=== PATIENT | female | born 1965 | race Caucasian/White ===

== ENCOUNTER 2019-06-28 13:12 | Observation (INO) ==
[2019-06-28] MEDS ORDERED: Isovue-370 500 ML BOTTLE IVP ONE (13:35)
[2019-06-28] MEDS ORDERED: *HR* LORazepam 2 MG/ML VIAL IVP ONE (13:41)
[2019-06-28 13:49] LABS: Hematocrit 43.1 % (35.3-44.9); Hemoglobin 14.3 g/dL (11.5-15.4); Mean Corpuscular HGB Conc 33.2 g/dL (31.6-35.5); Mean Corpuscular Hemoglobin 33.7 pg (28.0-33.3); Mean Corpuscular Volume 101.7 fL (83.0-100.0); Mean Platelet Volume 11.1 fL (9.4-12.4); Platelet Count 200 K/mcL (140-400); Red Blood Count 4.24 M/mcL (3.82-4.97); White Blood Count 6.9 K/mcL (4.3-11.1)
[2019-06-28 14:02] LABS: Activated Partial Thrombo Time 31.2 Seconds (26.0-36.0); INR 1.1; Prothrombin Time 12.7 Seconds (9.4-12.1)
[2019-06-28 14:12] LABS: BUN/Creatinine Ratio 23 (6-26); Blood Urea Nitrogen 19 mg/dL (6-20); Calcium 9.6 mg/dL (8.6-10.3); Carbon Dioxide 24 mEq/L (23-29); Chloride 103 mEq/L (98-107); Glucose 125 mg/dL (70-105); Osmolality,Calculated 294 (280-300); Potassium 4.1 mEq/L (3.5-5.1); Sodium 140 mEq/L (136-145); Troponin I < 0.03 ng/mL (< 0.04); eGFR For African Americans > 60 (> 60); eGFR For Non-African Americans > 60 (> 60)
[2019-06-28] MEDS ORDERED: Naloxone 0.4 MG/ML INJ IVP PRN (17:33)
[2019-06-28] MEDS ORDERED: Acetaminophen 325 MG TABLET PO PRN (17:42)
[2019-06-28] MEDS ORDERED: 0.9 % Sodium Chloride 1,000 ML IVC SCH (17:45)
[2019-06-28] MEDS: Ondansetron 4 MG/2 ML VIAL IVP PRN (18:54)
[2019-06-28] MEDS: lamoTRIgine 100 MG TABLET PO SCH (20:45)
[2019-06-28] MEDS ORDERED: Metoclopramide 10 MG/2 ML VIAL IVP ONE (20:53)
[2019-06-28] MEDS: *HR* Heparin 5,000 UNIT/ML VIAL SQ SCH (21:50)
[2019-06-28] MEDS ORDERED: Ondansetron 4 MG/2 ML VIAL IVP ONE (22:54)
[2019-06-29 02:18] LABS: BUN/Creatinine Ratio 17 (6-26); Blood Urea Nitrogen 12 mg/dL (6-20); Calcium 8.8 mg/dL (8.6-10.3); Carbon Dioxide 28 mEq/L (23-29); Chloride 105 mEq/L (98-107); Chol/HDL Ratio 3.2 (0-4.9); Cholesterol 221 mg/dL (< 200); Glucose 105 mg/dL (70-105); HDL Cholesterol 69 mg/dL (40-59); LDL Cholesterol,Calculated 143 mg/dL (0-99); Magnesium 2.2 mg/dL (1.6-2.6); Osmolality,Calculated 288 (280-300); Phosphorous 4.1 mg/dL (2.7-4.5); Potassium 3.4 mEq/L (3.5-5.1); Sodium 139 mEq/L (136-145); Triglycerides 47 mg/dL (< 150); eGFR For African Americans > 60 (> 60); eGFR For Non-African Americans > 60 (> 60)
[2019-06-29 02:48] LABS: Folate > 22.3 ng/mL (3.0-16.0); Vitamin B12 993 pg/mL (250-1100)
[2019-06-29] MEDS: *HR* Heparin 5,000 UNIT/ML VIAL SQ SCH (05:54)
[2019-06-29] MEDS: Ondansetron 4 MG/2 ML VIAL IVP PRN (07:37)
[2019-06-29] MEDS ORDERED: Acetaminophen 325 MG TABLET PO PRN (07:58)
[2019-06-29] MEDS: lamoTRIgine 100 MG TABLET PO SCH (08:15)
[2019-06-29] MEDS ORDERED: hydroCHLOROthiazide 25 MG TABLET PO SCH (09:00)
[2019-06-29 11:24] VITALS: BP 133/73
== END 2019-06-29 13:47 | disposition home or self-care (01) ==
LOC: 3BNU 13:12 → EMEROOARM 13:12 → SUATTDRO 17:07 → 3BNU 17:59
PROVIDERS: ADMIT Internal Medicine; ATTEND Family Medicine